=== PATIENT | female | born 1985 | race Caucasian/White ===

== ENCOUNTER 2016-10-28 17:51 | Emergency (ER) | payer OTHER ==
[~2016-10-28] VITALS: Ht 162.6 cm; Wt 52.3 kg
[~2016-10-28 17:51] MED LIST: DOXY100T2 PO; ETHI1TAB4 PO; VNL75T PO
[2016-10-28 17:56] VITALS: BP 142/78; PULSE 146; RESP 18; O2SAT 98
--- NOTE | 2016-10-28 18:28 | ED.REPORT ---
HPI-Abd Pain F Under 41 Date of Service Oct 28, 2016 ED Provider: Jose Manuel Carreno MD The patient is a 31 year old female who presents to the ED due to diarrhea since yesterday. She is worried she has the stomach flu because she hung out with her friends children who were sick. Associated symptoms include abdominal cramps, fatigue and diaphoresis. 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 She completed a Suboxone taper 3 weeks ago. She took some Suboxone today to help with the stomach cramping. She denies nausea and vomiting. Nursing Notes Stated Complaint: STOMACH PROBLEMS Chief Complaint: Female Abdominal Pain Nursing Notes Reviewed: Yes Allergies: Coded Allergies: No Known Allergies (Unverified Allergy, Unknown, 10/28/16) Scheduled Doxycycline Hyclate (Doxycycline) 100 Mg Tab 100 MG PO DAILY Venlafaxine-Expunged Drug, Do Not Renew! (Effexor-Expunged Drug, Do Not Renew!) 75 Mg Tablet 150 MG PO AM Miscellaneous Medications Ethinyl Estradiol/Drospirenone (Rena 28 Tablet) 1 Tab Tablet 1 TAB PO General Time Seen by MD: 18:27 Chief Complaint Diarrhea moderate Hx Obtained From: Patient Arrived By: Walk-in Sudden in Onset?: Yes Onset Occurred: 9 - 12 hours ago Symptom Duration: Waxes and wanes Recent Healthcare: No recent doctor visit, No recent hospitalization Similar Sx Previous: No Past Medical History Past Medical History Depression Right wrist pain Past Surgical History None Family History Noncontributory Smoking History Current Every Day Smoker Social History previous IV heroine user, on suboxone and in recovery Alcohol Use: In recovery Drug Use: In recovery Other Social History: Good social support, Local resident 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 Skin: Reports Diaphoresis Physical Exam Physical Exam Notes: not tachycardic on exam, see repeat VS Initial Vital Signs Vital Signs (First) Date Time Temp Pulse Resp B/P Pulse Ox O2 Delivery O2 Flow Rate FiO2 10/28/16 17:56 37.2 146 18 142/78 98 Room Air Initial VS: Reviewed Head / Eyes: Atraumatic, Normocephalic, PERRL ENT: Mucous membranes moist, Conjunctiva normal, No scleral icterus Neck: Supple, Non-tender, Full range of motion Extremities: Vascular intact, Neuro intact, No swelling, No tenderness Skin: Warm, Dry, No cyanosis Psychiatric: Mood/affect normal, Behavior normal, Normal thought content General/Constitutional: Awake, Alert, No acute distress, Cooperative, Not toxic appearing Respiratory / Chest: Atraumatic, Breath sounds NL, No respiratory distress Cardiovascular: Heart rate NL, Regular rhythm, Heart sounds NL, No gallop, No murmurs, No rubs Abdomen: Atraumatic, Soft, Non-tender, No guarding, No rebound, BS normoactive Back: Atraumatic, Inspection NL, Full range of motion Interpretation & Diagnostics Lab Results Interpretation Result Diagram: 10/28/163 10/28/161822 Test 10/28/16 18:23 10/28/16 18:43 10/28/16 21:50 White Blood Count 12.4th/mm3 (3.8-10.1) Red Blood Count 4.13mil/mm3 (3.90-5.20) Hemoglobin 11.8g/dL (12.0-15.6) Hematocrit 35.6% (35.0-46.0) Mean Corpuscular Volume 86.2fL (81-100) Mean Corpuscular Hemoglobin 28.6pg (27.0-35.0) Mean Corpuscular Hemoglobin Concent 33.1% (32.0-37.0) Red Cell Distribution Width 14.5% (12.3-15.4) Platelet Count 438bil/L (150-400) Neutrophils (%) (Auto) 56.7% (40-74) Lymphocytes (%) (Auto) 30.2% (14-46) Monocytes (%) (Auto) 12.3% (4-12) Eosinophils (%) (Auto) 0.2% (0-5) Basophils (%) (Auto) 0.4% (0-3) Sodium Level 140mEq/L (134-144) Potassium Level 4.0mEq/L (3.5-5.2) Chloride Level 102mEq/L (97-108) Carbon Dioxide Level 24mmol/L (18-29) Blood Urea Nitrogen 14mg/dL (6-20) Creatinine 0.64mg/dL (0.57-1.00) Estimat Glomerular Filtration Rate 156mL/min (>59) Glucose Level 140mg/dL (60-99) Calcium Level 9.5mg/dL (8.5-10.1) Magnesium Level 2.0mg/dL (1.6-2.6) Total Bilirubin 0.6mg/dL (0.0-1.2) Aspartate Amino Transf (AST/SGOT) 154U/L (0-50) Alanine Aminotransferase (ALT/SGPT) 396U/L (0-32) Alkaline Phosphatase 51U/L (25-150) Total Protein 7.4g/dL (6.4-8.4) Albumin 4.5g/dL (3.4-5.0) Lipase 20U/L (13-60) Hold Blum Top Tube Received (Received) Hold Urine Received (Received) Hepatitis C Comment . ECG Interpretation Time: 18:25 Interpreted by: ED physician Normal ECG Interpretation: Normal ECG w/ rate of... (87) Re-Eval/Medical Decision Re-Evaluation/Progress : Time of Eval: 21:05 Counseled Regarding: Diagnosis, Lab results, Need for follow-up, When/why to return to ED Discharge & Departure Primary Impression: Gastroenteritis Additional Impression: Elevated transaminase level Disposition: Home Discharge Condition All VS Reviewed: Yes Condition: Stable Additional Instructions: Emergency department evaluation tonight included interview, examination and labs. History of diarrhea with recent exposure to others with a diarrheal illness is most suggestive of gastroenteritis. This is a self-limited illness and you should feel better in a few days. May use imodium to help control diarrhea. We did note on labs and elevation in enzyme levels that are associated with liver disease. We have ordered an acute viral hepatitis panel, call us in about 2 days for results. We also suggest that you should follow-up with her primary care doctor soon regarding this. Return to emergency department for yellowing of skin (jaundice) increasing abdominal pain, uncontrolled vomiting. Follow-up with treatment for opiate addiction as previously planned, and we wish her the best of luck with this is a very important step you can take for your own health. Referrals: Stan Sinha MD (PCP) Scribe Attestation Portion of this note were transcribed by Ana Brooks. I, Dr. Carreno, personally performed the history, physical exam, and medical decision-making: I reviewed and confirmed the accuracy for the information in the transcribed note. Signed by: ashok Cotton, 10/28/16 1930 copies to: Stan Sinha MD, Donald L MD Oct 28, 2016 18:28 Ana Brooks Oct 28, 2016 18:39
[2016-10-28 18:37] LABS: BASOPHILS % (AUTO) 0.4 % (0-3); EOSINOPHILS % (AUTO) 0.2 % (0-5); MONOCYTES % (AUTO) 12.3 % (4-12); Mean Corpuscular Hemoglobin 28.6 pg (27.0-35.0); Mean Corpuscular Volume 86.2 fL (81-100); NEUTROPHILS % (AUTO) 56.7 % (40-74); Platelet Count 438 bil/L (150-400)
[2016-10-28 20:54] VITALS: BP 132/82; PULSE 99; RESP 18; O2SAT 97
[2016-10-28 22:07] VITALS: BP 125/58; PULSE 86; RESP 22; O2SAT 99
[2016-10-29 06:12] LABS: Hepatitis A Antibody IgM Negative (Negative); Hepatitis B Core Antibody IgM Negative (Negative)
== END 2016-10-28 22:08 | disposition home or self-care (01) ==
LOC: SED 17:51
DX: K52.9 Noninfective gastroenteritis and colitis, unspecified (principal); R74.0 Nonspecific elevation of levels of transaminase and lactic acid dehydrogenase [LDH]; R53.83 Other fatigue; R61 Generalized hyperhidrosis; F17.200 Nicotine dependence, unspecified, uncomplicated
CPT/HCPCS: 36415; 80053; 81025; 83690; 83735; 85025; 86705; 86709; 87340; 87341; 93005; 99284; G0472